=== PATIENT | female | born 1945 | race Caucasian/White ===

== ENCOUNTER 2020-04-12 13:08 | Emergency (ER) | payer MEDICARE ==
[~2020-04-12] VITALS: Ht 175.3 cm; Wt 83.0 kg
[2020-04-12] MEDS ORDERED: acetaminophen 325mg tablet PO ONE (14:00)
[2020-04-12 14:12] VITALS: BP 121/77
== END 2020-04-12 14:16 | disposition home or self-care (01) ==
LOC: ER 13:08
DX: M25.532 Pain in left wrist (principal); Y93.89 Activity, other specified; Y92.89 Other specified places as the place of occurrence of the external cause; Z86.718 Personal history of other venous thrombosis and embolism; Z79.01 Long term (current) use of anticoagulants; Y99.8 Other external cause status; M81.0 Age-related osteoporosis without current pathological fracture; V19.88XA Pedal cyclist (driver) (passenger) injured in other specified transport accidents, initial encounter; M51.35 Other intervertebral disc degeneration, thoracolumbar region
CPT/HCPCS: 29125; 70450; 71045; 72125; 73080; 73110; 99285

== ENCOUNTER 2023-08-05 15:01 | Emergency (ER) | payer MEDICARE ==
[~2023-08-05] VITALS: Ht 175.3 cm; Wt 84.1 kg
[2023-08-05] MEDS: LIDOCAINE 1%/EPI 1:100,000 inj. 10 ML multi-dose vial IJ ONE (16:10)
[2023-08-05] MEDS: TETanus/Pertussis (Acell)/Diphther VAC/PF (Tdap-Adult) 0.5ml syringe IMVAC ONE (16:13)
[2023-08-05 17:00] VITALS: BP 128/80; PULSE 75; RESP 16; TEMP 98; O2SAT 95
[2023-08-08] MEDS ORDERED: SIMV-45 PO (06:05)
[2023-08-08] MEDS ORDERED: APIX5TAB3 PO (06:05)
[2023-08-08] MEDS ORDERED: PARO40TA4 PO (06:05)
[2023-08-09] MEDS ORDERED: AMOX-580 PO (12:54)
[2023-08-09] MEDS ORDERED: DOXY-224 PO (12:54)
[2023-08-09] MEDS ORDERED: SACC250C PO (12:54)
== END 2023-08-05 17:01 | disposition home or self-care (01) ==
LOC: ER 15:02
DX: S61.412A Laceration without foreign body of left hand, initial encounter (principal); X58.XXXA Exposure to other specified factors, initial encounter; Y93.89 Activity, other specified; Y92.89 Other specified places as the place of occurrence of the external cause; Y99.8 Other external cause status
CPT/HCPCS: 12002; 90471; 90715; 99284; A6258; A6449

== ENCOUNTER 2024-01-11 18:49 | Emergency (ER) | payer MEDICARE ==
[~2024-01-11] VITALS: Ht 175.3 cm; Wt 79.5 kg
[~2024-01-11 18:49] MED LIST: AMOX-580 PO; APIX5TAB3 PO; DOXY-224 PO; PARO40TA4 PO; SACC250C PO; SIMV-45 PO
[2024-01-11] MEDS ORDERED: CEPH-585 PO (19:28)
[2024-01-11] MEDS: CefTRIAXone 1000mg IM Kit (w/lidocaine diluent) IM ONE (19:35)
[2024-01-11 19:51] VITALS: BP 128/86; PULSE 74; RESP 16; TEMP 97.8; O2SAT 99
== END 2024-01-11 19:53 | disposition home or self-care (01) ==
LOC: ER 18:50
DX: T24.002A Burn of unspecified degree of unspecified site of left lower limb, except ankle and foot, initial encounter (principal); Z79.2 Long term (current) use of antibiotics; Z79.899 Other long term (current) drug therapy; X15.0XXA Contact with hot stove (kitchen), initial encounter; Y93.89 Activity, other specified; Y92.89 Other specified places as the place of occurrence of the external cause; Y99.8 Other external cause status
CPT/HCPCS: 96372; 99283; J0696